=== PATIENT | female | born 1950 | race Caucasian/White ===

== ENCOUNTER 2017-08-25 16:13 | Emergency (ER) | payer MEDICARE ==
[~2017-08-25] VITALS: Ht 165.1 cm; Wt 60.0 kg
[2017-08-25 16:15] VITALS: BP 197/85; PULSE 88; RESP 14; TEMP 98.8; O2SAT 98
--- NOTE | 2017-08-25 17:18 | PD ---
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 Onset after her was assisting her with undressing and caught her arm in her shirt. Patient rates the pain 5/10, no alleviating or exacerbating factors reported. Patient endorses contracture of the wrist 2/2 CS. Denies numbness, tingling. Denies fevers, chills, nausea, vomiting. Patients states that she is prescribed tramadol but is noncompliant because "she doesnt want to get hooked.: [facility] Social History Tobacco Use: No Allergies-Medications (Allergen,Severity, Reaction): Coded Allergies: No Known Allergies (Unverified , 08/25/17) Reported Meds & Prescriptions Reported Meds & Active Scripts Active Reported Atorvastatin (Atorvastatin Calcium) 40 Mg Tab 40 Mg PO DAILY Metformin (Metformin HCl) 1,000 Mg Tab 2,000 Mg PO HS With a meal Aspirin 81 Mg Chew 81 Mg CHEW DAILY Lisinopril 5 Mg Tab 5 Mg PO DAILY Victoza 3-Adam (Liraglutide) 0.6 Mg/0.1 Ml (18 Mg/3 Ml) Pen.injctr 1.8 SQ HS Review of Systems Except as stated in HPI: all other systems reviewed are Neg Physical Exam Narrative GENERAL: Well-nourished, well-developed white female in no acute distress.. SKIN: Focused skin assessment warm/dry. HEAD: Normocephalic. EYES: No scleral icterus. No injection or drainage. NECK: Supple, trachea midline. No JVD or lymphadenopathy. CARDIOVASCULAR: Regular rate and rhythm without murmurs, gallops, or rubs. RESPIRATORY: Breath sounds equal bilaterally. No accessory muscle use. GASTROINTESTINAL: Abdomen soft, non-tender, nondistended. MUSCULOSKELETAL: No cyanosis, or edema. FOCUSED RIGHT UPPER EXTREMITY EXAM: 2+ radial pulse. Patient is able to squeeze my finger, unable to completely extend the fingers. She states this is her normal. There is some contracture of the wrist in a flexural position. There is mild edema of the wrist and dorsal aspect of the hand. Mild tenderness to palpation over the dorsum of the hand noted. Patient is able to flex and extend the elbow without difficulty. Sensation intact to light touch distally. Cap refill less than 2 seconds. BACK: Nontender without obvious deformity. No CVA tenderness. Data Data Last Documented VS Vital Signs Date Time Temp Pulse Resp B/P (MAP) Pulse Ox O2 Delivery O2 Flow Rate FiO2 08/25/17 17:25 74 18 143/72 (95) 100 Room Air 08/25/17 16:15 98.8 Orders Orders Hand, Complete ([id number]) (08/25/17 ) Ibuprofen (Motrin) (08/25/17 17:30) Ice/Cold Pack (08/25/17 17:18) Ed Discharge Order (08/25/17 17:57) [facility] Medical Decision Making Medical Screen Exam Complete: Yes Emergency Medical Condition: Yes Differential Diagnosis musculoskeletal pain versus muscle strain versus fracture versus other Narrative Course 67-year-old female presents to the ED for evaluation of right hand pain and swelling after getting it caught in a short while undressing a few days ago. Patient's hypertensive on presentation but this resolves in the exam room. FOCUSED RIGHT UPPER EXTREMITY EXAM: 2+ radial pulse. Patient is able to squeeze my finger, unable to completely extend the fingers. She states this is her normal. There is some contracture of the wrist in a flexural position. There is mild edema of the wrist and dorsal aspect of the hand. Mild tenderness to palpation over the dorsum of the hand noted. Patient is able to flex and extend the elbow without difficulty. Sensation intact to light touch distally. Cap refill less than 2 seconds. Patient was administered ice pack and 600 mg ibuprofen. X-ray reveals no acute bony injury per radiology read. Patient was instructed to remove her jewelry, use RICE therapy, take her previously prescribed tramadol for pain greater than 6, follow with the primary care provider. The indicated understanding of instructions. The patient is stable and discharged home. Diagnosis Primary Impression: Musculoskeletal pain of right upper extremity Referrals: Primary Care Physician Patient Instructions: General Instructions, Musculoskeletal Pain (ED) Additional Instructions: Rest, ice, elevate the extremity. Apply ice no longer than 10-15 minutes per hour a few times a day. 600mg ibuprofen up to 3 times a day as needed for pain rated 1 through 6. His pain is greater than 6 use previously prescribed tramadol. Return to normal, gentle activity as tolerated. Follow up with orthopedist or your primary care provider. Return to the ED for any urgent or emergent medical condition. Disposition: 01 DISCHARGE HOME Condition: Stable Genia Cobb Aug 25, 2017 17:18
[2017-08-25] MEDS ORDERED: METF1000 PO (17:24)
[2017-08-25] MEDS ORDERED: LISI-519 PO (17:24)
[2017-08-25] MEDS ORDERED: VICT18IN2 SQ (17:24)
[2017-08-25] MEDS ORDERED: ASPI-516 CHEW (17:24)
[2017-08-25 17:25] VITALS: BP 143/72; PULSE 74; RESP 18; O2SAT 100
--- NOTE | 2017-08-25 17:28 | RADRPT ---
EXAM DATE/TIME: 08/25/2017 16:56 [facility] COMPARISON: No previous studies available for comparison. INDICATIONS : Right hand swelling for 1 week. No injury. MEDICAL HISTORY : Cortical basal syndrome. SURGICAL HISTORY : None. ENCOUNTER: Initial ACUITY: 1 week PAIN SCORE: 0/10 LOCATION: Right posterior hand. 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 Alignment is anatomic. Fracture is not appreciated. CONCLUSION: Degenerative changes, fracture not appreciated Ozzie Elizalde MD FACR on August 25, 2017 at 17:25 Board Certified Radiologist. This report was verified electronically.
[2017-08-25] MEDS ORDERED: IBUPROFEN 800 MG TAB PO ONE (17:30)
[2017-08-25] MEDS ORDERED: ATOR40TA16 PO (17:53)
--- NOTE | 2017-08-25 18:04 | PD ---
Physical Exam Date Seen by Provider: Aug 25, 2017 Time Seen by Provider: 17:00 Narrative I, Dr. Cavanaugh, have reviewed the advance practice practitioner's documentation and am in agreement, met with the patient face to face, made the diagnosis, and the medical decision making was done by me. *My assessment and Findings: Patient seen and evaluated with PA, please see PA note for further details. She is here with right hand pain that started after she got it caught in a shirt. Is been more swollen and is concerned. X -ray did not show any signs of acute fractures. I suspect that she may have an underlying strain causing the symptoms. I have recommended that the removes jewelry from that hand in order to avoid issues due to the swelling. Elevate limb, follow-up with primary care doctor. The plan was discussed with the patient's he states understanding. Data Data Last Documented VS Vital Signs Date Time Temp Pulse Resp B/P (MAP) Pulse Ox O2 Delivery O2 Flow Rate FiO2 08/25/17 17:25 74 18 143/72 (95) 100 Room Air 08/25/17 16:15 98.8 Orders Orders Hand, Complete ([id number]) (08/25/17 ) Ibuprofen (Motrin) (08/25/17 17:30) Ice/Cold Pack (08/25/17 17:18) Ed Discharge Order (08/25/17 17:57) MDM Medical Record Reviewed: Yes Supervised Visit with GENESIS: Yes Diagnosis Primary Impression: Musculoskeletal pain of right upper extremity Referrals: Primary Care Physician Patient Instructions: General Instructions, Musculoskeletal Pain (ED) Additional Instruction: Rest, ice, elevate the extremity. Apply ice no longer than 10-15 minutes per hour a few times a day. 600mg ibuprofen up to 3 times a day as needed for pain rated 1 through 6. His pain is greater than 6 use previously prescribed tramadol. Return to normal, gentle activity as tolerated. Follow up with orthopedist or your primary care provider. Return to the ED for any urgent or emergent medical condition. Disposition: 01 DISCHARGE HOME Condition: Stable Emmanuel Cavanaugh MD Aug 25, 2017 18:04
== END 2017-08-25 18:15 | disposition home or self-care (01) ==
LOC: NEPC 16:13
DX: M25.531 Pain in right wrist (principal); G31.85 Corticobasal degeneration; Z79.82 Long term (current) use of aspirin; Z79.899 Other long term (current) drug therapy; Z91.14 Patient's other noncompliance with medication regimen
CPT/HCPCS: 73130; 99283